=== PATIENT | male | born 2000 | race Two or more races ===

== ENCOUNTER → 2025-02-11 | Emergency (ER) | payer OTHER ==
[~2025-02-11] VITALS: Ht 185.4 cm; Wt 77.1 kg
[~2025-02-11] MED LIST: CEFTRIAXONE SODIUM 1,000 MG VIAL IM ONE; DUI500 PO; LIDOCAINE HCL 1% 10ML VIAL PERCUT ONE; TETANUS & DIPHTHERIA TOX,ADULT 0.5 ML VIAL IM ONE
== END | disposition home or self-care (01) ==
LOC: ER 13:44
DX: S61.421A Laceration with foreign body of right hand, initial encounter (principal); W25.XXXA Contact with sharp glass, initial encounter; Y93.89 Activity, other specified; Y92.89 Other specified places as the place of occurrence of the external cause

== ENCOUNTER 2025-02-21 13:16 | Emergency (ER) | payer OTHER ==
[~2025-02-21] VITALS: Ht 185.4 cm; Wt 79.4 kg
[~2025-02-21 13:16] MED LIST changes: -CEFTRIAXONE SODIUM 1,000 MG VIAL IM ONE; -LIDOCAINE HCL 1% 10ML VIAL PERCUT ONE; -TETANUS & DIPHTHERIA TOX,ADULT 0.5 ML VIAL IM ONE
[2025-02-21] MEDS ORDERED: SINGULAIR5 MG PO (14:27)
== END 2025-02-21 15:50 | disposition home or self-care (01) ==
LOC: ER 13:17
DX: Z48.02 Encounter for removal of sutures (principal)